=== PATIENT | male | born 1945 | race Caucasian/White ===

== ENCOUNTER 2017-11-18 13:19 | Inpatient (IN) ==
[2017-11-18] MEDS ORDERED: Ondansetron 4 MG/2 ML VIAL IVP PRN (17:22)
[2017-11-18] MEDS ORDERED: Acetaminophen 325 MG TABLET PO PRN (17:22)
[2017-11-18] MEDS ORDERED: Naloxone 0.4 MG/ML INJ IVP PRN (17:22)
--- NOTE | 2017-11-18 17:27 | Internal Med History&Physical ---
Date of Encounter: 11/19/17 Time of Encounter: 17:30 Assessment and Plan (1) Pneumonia Status: Inactive He has already received a dose of IV Rocephin and Zithromax. I will put him on Levaquin starting tomorrow. This will need to be dosed per kidney function. I have ordered strep and Legionella from urine. I have ordered blood cultures though he had received antibiotics. His lactic acid is within normal range. We will continue with nebulizers. Wean off oxygen as tolerated. Check sputum culture if he is able to give a sample. Qualifiers: Pneumonia type: due to unspecified organism Laterality: unspecified laterality Lung location: unspecified part of lung Qualified Code(s): J18.9 - Pneumonia, unspecified organism (2) Encephalopathy acute Status: Acute This is likely secondary to infectious etiology. For now we will treat his pneumonia and monitor mental status. He had a CT head done at [place] which was unremarkable. We will continue to follow. (3) Peripheral neuropathy Status: Acute Continue home meds. Qualifiers: Peripheral neuropathy type: mononeuropathy, unspecified Qualified Code(s): G58.9 - Mononeuropathy, unspecified (4) Chronic kidney disease, stage III (moderate) Status: Chronic Stable will check a BMP in the morning. 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 He will follow up as an outpatient. (6) DVT prophylaxis Status: Acute Heparin subcutaneous Internal Medicine - H&P: HPI Chief complaint: Shortness of breath Admitted From: Direct Admit Plans for Post Hospital Care: Home History of present illness: Mr. Zaman is a 72 year old male history of small cell lung cancer status post chemoradiation, hypertension, peripheral neuropathy, GERD, hyperlipidemia who presents to us as a transfer from [facility] after he had presented there with shortness of breath. Apparently the patient was doing well up until about yesterday when he started having issues with breathing per his . He has had a cough that is mostly dry. His measured a temperature that was up to about 101. He was feeling weak. Because at that they took him to [place] where he had a workup that showed that he has findings of pneumonia. He had a temperature 100.3 at that facility. He had laboratory workup that showed that he had a white count at around 10k. Normal lactic acid. Hemoglobin 13.9 and platelets 180. I do not see a CMP that was ordered there. He had an ABG which came back with a normal pH with a PCO2 44 PO2 was low at 54 with bicarbonate at 28. The patient was further most part hemodynamically stable other than a little bit of tachycardia with a heart rate of 103. He was given a dose of Zithromax and Rocephin. He was transferred to our facility then. The patient denies any headache blurry vision nausea vomiting chest pain abdominal pain near his symptoms or neurological symptoms other than the confusion that was this morning. Zachary of this patient is confusion was completely resolved. Past Med Surg Social Fam HX - Past Medical History Medical history: arthritis, cancer, coronary artery disease, GERD, hyperlipidemia, hypertension, malignancy, peripheral artery disease, renal disease, other Psychiatric history: depression - Past Surgical History Surgical History: angioplasty/stent, cataract, orthopedic, other, vascular surgery, other - Social History Smoking Status: Former smoker Smokeless Tobacco Status: No Alcohol use: none Drug use: none - Family History Paternal Grandfather Hx Family Neurologic Disorders: Yes (cva) Paternal Grandmother Hx Family Endocrine Disorder: Yes (dibetic) Father Adopted: No Family Member Ethnicity: Non- Living Status: Hx Family Cardiac Disorders: Yes Hx Family Respiratory Disorders: No Hx Family Cancer: Yes (penile) Hx Family GI Disorders: No Hx Family Endocrine Disorder: No Hx Family Neuromuscular Disorders: No Hx Family Neurologic Disorders: Yes (cva) Hx Family HEENT Disorders: No Hx Family Autoimmune Disorders: No Mother Living Status: Hx Family Cancer: Yes Sister Hx Family Cancer: Yes Hx Family Endocrine Disorder: Yes (Diabetes) Internal Medicine - H&P: Meds Allopurinol [Zyloprim 100 MG] 100 mg PO DAILY 02/15/16 [History] Atorvastatin Calcium [Lipitor] 80 mg PO HS 02/15/16 [History] Metoprolol XL (24 HR) Succ [Toprol Xl] 25 mg PO DAILY 02/15/16 [History] Omeprazole [PriLOSEC] 20 mg PO DAILY 02/15/16 [History] Pregabalin [Lyrica] 150 mg PO DAILY 02/15/16 [History] Aspirin [Lo-Dose Aspirin EC] 81 mg PO DAILY 08/12/16 [History] Albuterol Sulfate [Albuterol Inhaler] 1 puff IH Q4HR PRN 03/23/17 [History] Niacin [Niaspan] 500 mg PO DAILY 06/30/17 [History] Cyanocobalamin (Vitamin B-12) [Vitamin B12] 500 mcg PO DAILY 10/14/17 [History] Pyridoxine HCl [Vitamin B-6] 100 mg PO DAILY 10/14/17 [History] Cholecalciferol (Vitamin D3) [Vitamin D3] 2,000 unit PO DAILY 11/18/17 [History] Multivit-Min/Iron Fum/Folic AC [Zppcf-Mxwfqrh-Emsdftrp Tablet] 1 each PO DAILY 11/18/17 [History] hydrALAZINE [HydrALAZINE] 25 mg PO BID 11/18/17 [History] levoFLOXacin [Levaquin] 500 mg PO DAILY #5 tablet 11/19/17 [Rx] 3 Allergy/AdvReac Type Severity Reaction Status Date / Time codeine Allergy Vomiting Verified 10/14/17 10:40 Oxycodone [From Percocet] AdvReac Intermediate Vomiting Verified 10/14/17 10:40 All Systems PM: A 10-system review of systems was performed and is negative for pertinent findings except as documented above in the HPI. Review of systems: All systems reviewed are negative except for what is mentioned above - Constitutional Vitals: Temp Pulse Resp BP Pulse Ox 98.7 F 71 16 121/68 97 11/18/17 15:02 11/18/17 15:02 11/18/17 15:02 11/18/17 15:02 11/18/17 15:02 Exam: GEN: NAD HEENT: AT, NC, No cyanosis, oral mucosa is moist, No JVD Lymphatics: No lymphadenoapthy Eyes: Extrocular muscles intact, anicteric CVS:RRR. S1, S2, No m/r/g RESP: CTAB ABD: Soft, NT, ND, +BS EXT: No edema, No rashes, 2+ DP NEURO: Nonfocal, CN II-XII intact, No focal motor or sensory deficits Psych: Cooperative, Not anxious or depressed Internal Med - H&P Results - Labs CBC & Chem 7: 11/19/17 02:46 11/19/17 02:46
[2017-11-18] MEDS ORDERED: Ipratropium/Albuterol Neb 3 ML IH PRN (17:42)
[2017-11-18] MEDS: 0.9 % Sodium Chloride 1,000 ML IVC SCH (19:05)
[2017-11-18 20:07] LABS: Alanine Aminotransferase 11 Units/L (7-52); Albumin 3.4 g/dL (3.5-5.7); Albumin/Globulin Ratio 1.5 (1.1-2.2); Alkaline Phosphatase 97 Units/L (34-104); Aspartate Amino Transferase 21 Units/L (13-39); BUN/Creatinine Ratio 9 (6-26); Bilirubin,Total 0.6 mg/dL (0.3-1.0); Blood Urea Nitrogen 13 mg/dL (8-23); Calcium 8.7 mg/dL (8.6-10.3); Carbon Dioxide 31 mEq/L (23-29); Chloride 102 mEq/L (98-107); Globulin 2.2 g/dL (2.4-3.5); Glucose 113 mg/dL (70-105); Osmolality,Calculated 285 (280-300); Potassium 4.1 mEq/L (3.5-5.1); Sodium 137 mEq/L (136-145); Total Protein 5.6 g/dL (6.4-8.9); eGFR For African Americans > 60 (> 60); eGFR For Non-African Americans 50 (> 60)
[2017-11-19] MEDS: *HR* Heparin 5,000 UNIT/ML VIAL SQ SCH ×2 (00:26→10:14)
[2017-11-19 03:08] LABS: Basophils % 0.4 %; Eosinophils # 0.2 K/mcL (0.0-0.6); Eosinophils % 2.1 %; Hematocrit 36.1 % (37.5-50.1); Hemoglobin 11.6 g/dL (12.9-16.9); Immature Granulocytes % 0.5 % (0-4); Lymphocytes # 1.4 K/mcL (0.6-4.6); Lymphocytes % 17.6 %; Mean Corpuscular HGB Conc 32.1 g/dL (31.6-35.5); Mean Corpuscular Hemoglobin 29.3 pg (28.0-33.3); Mean Corpuscular Volume 91.2 fL (83.0-100.0); Monocytes % 12.4 %; Neutrophils # 5.4 K/mcL (1.6-8.9); Platelet Count 147 K/mcL (140-400); Red Blood Count 3.96 M/mcL (4.19-5.50); Red Cell Distribution Width 14.2 % (11.5-14.5)
[2017-11-19 03:29] LABS: BUN/Creatinine Ratio 10 (6-26); Blood Urea Nitrogen 13 mg/dL (8-23); Calcium 8.8 mg/dL (8.6-10.3); Carbon Dioxide 29 mEq/L (23-29); Chloride 105 mEq/L (98-107); Glucose 92 mg/dL (70-105); Magnesium 1.8 mg/dL (1.6-2.6); Osmolality,Calculated 294 (280-300); Potassium 3.8 mEq/L (3.5-5.1); Sodium 142 mEq/L (136-145); eGFR For African Americans > 60 (> 60); eGFR For Non-African Americans 57 (> 60)
[2017-11-19] MEDS: 0.9 % Sodium Chloride 1,000 ML IVC SCH (04:26)
--- NOTE | 2017-11-19 08:25 | Discharge Summary ---
Date of Encounter: 11/19/17 Time of Encounter: 08:20 - Discharge Diagnosis (1) Pneumonia Priority: Primary Status: Inactive Qualifiers: Pneumonia type: due to unspecified organism Laterality: unspecified laterality Lung location: unspecified part of lung Qualified Code(s): J18.9 - Pneumonia, unspecified organism (2) Encephalopathy acute Priority: Primary Status: Acute (3) Peripheral neuropathy Priority: Secondary Status: Acute Qualifiers: Peripheral neuropathy type: mononeuropathy, unspecified Qualified Code(s): G58.9 - Mononeuropathy, unspecified (4) Chronic kidney disease, stage III (moderate) Priority: Secondary Status: Chronic (5) Small cell carcinoma of right lung Priority: Secondary Status: Chronic - Discharge Medications Prescriptions: levoFLOXacin [Levaquin] 500 mg PO DAILY #5 tablet Home Medications: Allopurinol [Zyloprim 100 MG] 100 mg PO DAILY 02/15/16 [History] Atorvastatin Calcium [Lipitor] 80 mg PO HS 02/15/16 [History] Metoprolol XL (24 HR) Succ [Toprol Xl] 25 mg PO DAILY 02/15/16 [History] Omeprazole [PriLOSEC] 20 mg PO DAILY 02/15/16 [History] Pregabalin [Lyrica] 150 mg PO DAILY 02/15/16 [History] Aspirin [Lo-Dose Aspirin EC] 81 mg PO DAILY 08/12/16 [History] Albuterol Sulfate [Albuterol Inhaler] 1 puff IH Q4HR PRN 03/23/17 [History] Niacin [Niaspan] 500 mg PO DAILY 06/30/17 [History] Cyanocobalamin (Vitamin B-12) [Vitamin B12] 500 mcg PO DAILY 10/14/17 [History] Pyridoxine HCl [Vitamin B-6] 100 mg PO DAILY 10/14/17 [History] Cholecalciferol (Vitamin D3) [Vitamin D3] 2,000 unit PO DAILY 11/18/17 [History] Multivit-Min/Iron Fum/Folic AC [Ruuxs-Nzqthjw-Qfbnflcz Tablet] 1 each PO DAILY 11/18/17 [History] hydrALAZINE [HydrALAZINE] 25 mg PO BID 11/18/17 [History] levoFLOXacin [Levaquin] 500 mg PO DAILY #5 tablet 11/19/17 [Rx] Allergies/Adverse Reactions: 3 Allergy/AdvReac Type Severity Reaction Status Date / Time codeine Allergy Vomiting Verified 10/14/17 10:40 Oxycodone [From Percocet] AdvReac Intermediate Vomiting Verified 10/14/17 10:40 Date of admission: 11/18/17 17:22 Primary care physician: Gordo Khanna MD Consults: 11/18/17 16:12 Consult to Plant Culture Manager [CONS] Routine Reason for SW Consult: family stated they want home health on discharge 11/18/17 17:44 Consult to Physical Therapy [CONS] Routine Comment: Evaluate, develop and implement POC Reason for Consult: PT eval - Patient Status Disposition: Home, Self-Care Condition: Fair Overall status at discharge: patient is progressing back to baseline - Discharge Instructions Follow Up With: Gordo Khanna MD [Primary Care Provider] - 11/27/17 9:30 am - Diet and Activity Activity: resume usual activities as tolerated Diet: regular diet Hospital course: Mr. Zaman is a 72 year old male with history of small cell lung cancer status post chemoradiation, hypertension, peripheral neuropathy, GERD, hyperlipidemia who presented to us as a transfer from [facility] after he had presented there with shortness of breath. The patient had been complaining also of a cough that was dry. He had a temperature of about 101. He went to [place] [facility] where he had a workup was found to have community- acquired pneumonia with infiltrates seen on chest x-ray. He was tachycardic there. His white count was normal. His lactic acid was normal. He transferred to our facility where he was admitted to the hospitalist service. Apparently the patient was showing signs of confusion at home and at [place] [facility]. By the time he was in our facility he had showed no signs of confusion whatsoever. He was put on IV Levaquin. He did well and was not requiring oxygen the following day and was discharged to finish a course of treatment with oral Levaquin. We did set him up with home health. - Time Spent with Patient Total time spent providing and/or coordinating discharge services: Greater than 30 minutes - Constitutional Vitals: Temp Pulse Resp BP Pulse Ox 98.7 F 66 18 152/72 90 11/19/17 06:56 11/19/17 06:56 11/19/17 06:56 11/19/17 06:56 11/19/17 06:56 Exam: GEN: NAD CVS: RRR. S1, S2, No m/r/g RESP: Diminished and coarse at the bases. ABD: Soft, NT, ND, +BS EXT: No edema. 2+ DP, No rashes NEURO: Nonfocal
[2017-11-19] MEDS ORDERED: Metoprolol XL (24 HR) Succ 25 MG TAB.ER.24H PO SCH (09:00)
[2017-11-19] MEDS ORDERED: Pyridoxine (B-6) 50 MG TABLET PO SCH (09:00)
[2017-11-19] MEDS ORDERED: Levofloxacin 500 MG/100 ML 500 MG/100 ML BAG IVPB SCH (09:00)
[2017-11-19] MEDS ORDERED: Pregabalin 75 MG CAPSULE PO SCH (09:00)
[2017-11-19 11:08] VITALS: BP 138/74
--- NOTE | 2017-11-19 14:36 | Physician Discharge Referral ---
Home Health/Hosp Referral Info Transfer to: Home Health - Diagnosis (1) Pneumonia Priority: Primary Status: Inactive (2) Encephalopathy acute Priority: Primary Status: Acute (3) Peripheral neuropathy Priority: Secondary Status: Acute (4) Chronic kidney disease, stage III (moderate) Priority: Secondary Status: Chronic (5) Small cell carcinoma of right lung Priority: Secondary Status: Chronic - Respiratory Orders Smoking Cessation: Smoking cessation has been advised. For more information, call the [place] Tobacco Quit Line at 1-017-WYGK-NOW. - Diet/Nutrition Diet/Nutrition Orders: Regular - Services Needed Following services are medically necessary services: Home Health Aide - Transfer Medications Prescriptions: levoFLOXacin [Levaquin] 500 mg PO DAILY #5 tablet Home Medications: Allopurinol [Zyloprim 100 MG] 100 mg PO DAILY 02/15/16 [History] Atorvastatin Calcium [Lipitor] 80 mg PO HS 02/15/16 [History] Metoprolol XL (24 HR) Succ [Toprol Xl] 25 mg PO DAILY 02/15/16 [History] Omeprazole [PriLOSEC] 20 mg PO DAILY 02/15/16 [History] Pregabalin [Lyrica] 150 mg PO DAILY 02/15/16 [History] Aspirin [Lo-Dose Aspirin EC] 81 mg PO DAILY 08/12/16 [History] Albuterol Sulfate [Albuterol Inhaler] 1 puff IH Q4HR PRN 03/23/17 [History] Niacin [Niaspan] 500 mg PO DAILY 06/30/17 [History] Cyanocobalamin (Vitamin B-12) [Vitamin B12] 500 mcg PO DAILY 10/14/17 [History] Pyridoxine HCl [Vitamin B-6] 100 mg PO DAILY 10/14/17 [History] Cholecalciferol (Vitamin D3) [Vitamin D3] 2,000 unit PO DAILY 11/18/17 [History] Multivit-Min/Iron Fum/Folic AC [Mjqgy-Oacqrnv-Wkkvnqep Tablet] 1 each PO DAILY 11/18/17 [History] hydrALAZINE [HydrALAZINE] 25 mg PO BID 11/18/17 [History] levoFLOXacin [Levaquin] 500 mg PO DAILY #5 tablet 11/19/17 [Rx] Allergies/Adverse Reactions: 3 Allergy/AdvReac Type Severity Reaction Status Date / Time codeine Allergy Vomiting Verified 10/14/17 10:40 Oxycodone [From Percocet] AdvReac Intermediate Vomiting Verified 10/14/17 10:40 Certification: Further, I certify that my clinical findings support that this patient is homebound (i.e. absences from home require considerable and taxing effort and are for medical reasons or yarsanism services or infrequently or short duration when for other reasons) because: Homebound Reason: Patient requires assistance of a person or device to safely leave home Attestation: My signature below is to certify that this patient is under my care and that I, or nurse practitioner, or a physician's assistant terminal manager working with me, has a face-to -face encounter with this patient.
== END 2017-11-19 15:50 | disposition home or self-care (01) | DRG 193 ==
LOC: 3BNU
PROVIDERS: ADMIT Internal Medicine; ATTEND Registered Nurse

== ENCOUNTER 2017-12-11 16:55 | Inpatient (IN) ==
[2017-12-11] MEDS ORDERED: Ipratropium/Albuterol Neb 3 ML IH PRN (22:47)
[2017-12-11] MEDS ORDERED: Naloxone 0.4 MG/ML INJ IVP PRN (22:50)
--- NOTE | 2017-12-11 22:56 | Internal Med History&Physical ---
Date of Encounter: 12/11/17 Time of Encounter: 22:53 Assessment and Plan (1) Pleural effusion Current visit: Yes Status: Acute now on 2 LC. Hypoxia likely 2/2 plueral effusion. Consult pulm for diagnostic and therapeutic tap given hx of SCLC, and some pleuritic component, will check CTA to r/o PE (lower clinical suspicion given vital stable) and disease relapse onc follow up (2) Weakness Current visit: Yes Status: Acute uncertain etiology, could be related to abdo discomfort, diarrhea ? watch closely for now pt/ot trend lactate, check CPK from fall and found down (3) Small cell carcinoma of right lung Current visit: No Status: Chronic restaging CT imaging with hydration for contrast ppx in setting of CKD (4) HTN (hypertension) Current visit: Yes Status: Acute continue med Qualifiers: Hypertension type: essential hypertension Qualified Code(s): I10 - Essential (primary) hypertension Internal Medicine - H&P: HPI Chief complaint: fall, weakness History of present illness: Mr. Zaman is a 72 year old male with hx of HTN, SCLC s/p chemo-RT and PCI approx 1 year prior who presents with a fall 2/2 extreme weakness. He was found on the floor by a family friend but does not remember the circumstance leading to that. He reports abdo discomfort and diarrhea last evening. On review he noted 5-6 lb weight loss and chest discomfort on deep inspiration. He does not use oxygen at baseline EKG reviewed personally with rate 68, nsr CT/CT head/brain wo con IMPRESSION: No acute intracranial abnormality. Stable pattern of atrophy and small vessel disease in the periventricular white matter. XR/XR chest 1V portable IMPRESSION: Increased volume of a moderately sized right pleural effusion with associated atelectasis or consolidation. Past Med Surg Social Fam HX - Past Medical History Medical history: arthritis, cancer, coronary artery disease, GERD, hyperlipidemia, hypertension, malignancy, peripheral artery disease, renal disease, other Psychiatric history: depression - Past Surgical History Surgical History: angioplasty/stent, cataract, orthopedic, other, vascular surgery, other - Social History Smoking Status: Former smoker Smokeless Tobacco Status: No Alcohol use: none Drug use: none - Family History Paternal Grandfather Hx Family Neurologic Disorders: Yes (cva) Paternal Grandmother Hx Family Endocrine Disorder: Yes (dibetic) Father Adopted: No Family Member Ethnicity: Non- Living Status: Hx Family Cardiac Disorders: Yes Hx Family Respiratory Disorders: No Hx Family Cancer: Yes (penile) Hx Family GI Disorders: No Hx Family Endocrine Disorder: No Hx Family Neuromuscular Disorders: No Hx Family Neurologic Disorders: Yes (cva) Hx Family HEENT Disorders: No Hx Family Autoimmune Disorders: No Mother Living Status: Hx Family Cancer: Yes Sister Hx Family Cancer: Yes Hx Family Endocrine Disorder: Yes (Diabetes) Internal Medicine - H&P: Meds Allopurinol [Zyloprim 100 MG] 100 mg PO DAILY 02/15/16 [History] Atorvastatin Calcium [Lipitor] 80 mg PO HS 02/15/16 [History] Metoprolol XL (24 HR) Succ [Toprol Xl] 25 mg PO DAILY 02/15/16 [History] Omeprazole [PriLOSEC] 20 mg PO DAILY 02/15/16 [History] Pregabalin [Lyrica] 150 mg PO DAILY 02/15/16 [History] Aspirin [Lo-Dose Aspirin EC] 81 mg PO DAILY 08/12/16 [History] Albuterol Sulfate [Albuterol Inhaler] 1 puff IH Q4HR PRN 03/23/17 [History] Niacin [Niaspan] 500 mg PO DAILY 06/30/17 [History] Cyanocobalamin (Vitamin B-12) [Vitamin B12] 500 mcg PO DAILY 10/14/17 [History] Pyridoxine HCl [Vitamin B-6] 100 mg PO DAILY 10/14/17 [History] Cholecalciferol (Vitamin D3) [Vitamin D3] 2,000 unit PO DAILY 11/18/17 [History] Multivit-Min/Iron Fum/Folic AC [Vegae-Duoqmmn-Xvryvnbc Tablet] 1 each PO DAILY 11/18/17 [History] hydrALAZINE [HydrALAZINE] 25 mg PO BID 11/18/17 [History] 3 Allergy/AdvReac Type Severity Reaction Status Date / Time codeine Allergy Vomiting Verified 12/11/17 14:31 Oxycodone [From Percocet] AdvReac Intermediate Vomiting Verified 12/11/17 14:31 All Systems PM: A 10-system review of systems was performed and is negative for pertinent findings except as documented above in the HPI. - Constitutional Vitals: Temp Pulse Resp BP Pulse Ox 98.6 F 62 18 157/72 95 12/11/17 18:54 12/11/17 18:54 12/11/17 18:54 12/11/17 18:54 12/11/17 20:31
[2017-12-12] MEDS: 0.9 % Sodium Chloride 1,000 ML IVC SCH ×2 (00:04→17:33)
[2017-12-12] MEDS: Ipratropium/Albuterol Neb 3 ML IH SCH ×4 (04:50→23:31)
[2017-12-12] MEDS: *HR* Heparin 5,000 UNIT/ML VIAL SQ SCH ×2 (05:51→17:31)
[2017-12-12] MEDS: Pyridoxine (B-6) 50 MG TABLET PO SCH (08:29)
[2017-12-12] MEDS: Pregabalin 75 MG CAPSULE PO SCH (08:30)
[2017-12-12] MEDS: hydrALAZINE 25 MG TABLET PO SCH ×2 (08:30→20:00)
[2017-12-12] MEDS: Aspirin Enteric Coated 81 MG Tablet PO SCH (08:30)
[2017-12-12] MEDS: Metoprolol XL (24 HR) Succ 25 MG TAB.ER.24H PO SCH (08:30)
[2017-12-12 08:36] LABS: Basophils # 0.1 K/mcL (0.0-0.2); Basophils % 0.6 %; Eosinophils # 0.2 K/mcL (0.0-0.6); Eosinophils % 2.6 %; Hematocrit 37.9 % (37.5-50.1); Hemoglobin 12.2 g/dL (12.9-16.9); Immature Granulocytes % 0.4 % (0-4); Lymphocytes # 1.7 K/mcL (0.6-4.6); Lymphocytes % 20.4 %; Mean Corpuscular HGB Conc 32.2 g/dL (31.6-35.5); Mean Corpuscular Hemoglobin 29.1 pg (28.0-33.3); Mean Corpuscular Volume 90.5 fL (83.0-100.0); Mean Platelet Volume 11.1 fL (9.4-12.4); Monocytes # 1.2 K/mcL (0.0-1.3); Monocytes % 14.4 %; Platelet Count 161 K/mcL (140-400); Red Blood Count 4.19 M/mcL (4.19-5.50); Red Cell Distribution Width 14.5 % (11.5-14.5); Segmented Neutrophils % 61.6 %
[2017-12-12 08:44] LABS: INR 1.3; Prothrombin Time 13.9 Seconds (9.4-12.1)
[2017-12-12 08:56] LABS: Alanine Aminotransferase 9 Units/L (7-52); Albumin 3.3 g/dL (3.5-5.7); Albumin/Globulin Ratio 1.2 (1.1-2.2); Alkaline Phosphatase 93 Units/L (34-104); Aspartate Amino Transferase 19 Units/L (13-39); BUN/Creatinine Ratio 11 (6-26); Blood Urea Nitrogen 12 mg/dL (8-23); Calcium 9.2 mg/dL (8.6-10.3); Carbon Dioxide 25 mEq/L (23-29); Chloride 105 mEq/L (98-107); Creatine Kinase 154 Units/L (30-223); Globulin 2.8 g/dL (2.4-3.5); Glucose 88 mg/dL (70-105); Osmolality,Calculated 285 (280-300); Potassium 3.8 mEq/L (3.5-5.1); Sodium 138 mEq/L (136-145); Total Protein 6.1 g/dL (6.4-8.9); eGFR For African Americans > 60 (> 60); eGFR For Non-African Americans > 60 (> 60)
--- NOTE | 2017-12-12 09:21 | Pulmonology Consult Note ---
Date of Encounter: 12/12/17 Time of Encounter: 09:30 Assessment and Plan (1) Small cell carcinoma of right lung Current Visit: Yes Status: Acute Patient has prior history limited stage small cell ca s/p chemo and radiotherapy now coming with increased weakness , loss of weight and appetite , the imaging didnt show any obvious recurrence will have to revaluate after thoracentesis as the Right middle and lower lobe has atelectasis any endobronchial lesion cannot be ruled out. (2) Pleural effusion Current Visit: Yes Status: Acute Patient underwent ultrasound guided thoracentesis 1.2 litres of straw colored fluid was removed send for chemistry , culture and cytology . wait for cytology , patient might need thoracentesis if cytology is negative , malignancy yield from pleural fluid is low . POST CXR decrease in the size of pleural effusion no evidence of pneumothorax patient tolerated the procedure well. (3) Pneumonia Current Visit: Yes Status: Acute Will cover for CAP with ceftriaxone and azithromycin . Qualifiers: Pneumonia type: due to unspecified organism Laterality: right Qualified Code(s): J18.9 - Pneumonia, unspecified organism History of Present Illness Consult date: 12/12/17 Requesting physician: Robert Mcmahon Reason for consult: dyspnea, pleural effusion Chief complaint: weakeness and shortness of breadth History of present illness: 72 year old male with past medical history significant for Limited stage small cell lung carcinoma under chemo and radiotherapy comes with slowly developing body weakness found on the floor found by the family , Initial work up and imaging no evidence of recurrent tumour no evidence of metastasis but the CT chest showed large pleural effusion pulmonary was consulted for diagnostic and therapeutic thoracentesis . Patient had some cough and sputum production denies any flu like symptoms , denies any shortness of breadth , had some pain on deep inspiration , looks like fall is mechanical , denies any syncope, denies any chest pain or palpitations , denies any fever or chills , pulmonary was consulted for evaluation of Right sided pleural effusion. Previous Treatment: 02/12/2016: Bronchoscopy with endobronchial ultrasound and biopsy 02/25/2016 - 03/18/2016: Cisplatin/etoposide x2 cycles 04/07/2016 - 05/20/2016: Thoracic radiotherapy with concurrent cisplatin/etoposide x2 cycles, 6000 cGy in 30 fractions 06/16/2016 - 06/27/2016: Prophylactic cranial irradiation, 2500 cGy in 10 fractions 01/20/2017: Bronchoscopy with biopsy Past Med Surg Social Fam HX - Past Medical History Medical history: arthritis, cancer, coronary artery disease, GERD, hyperlipidemia, hypertension, malignancy, peripheral artery disease, renal disease, other Psychiatric history: depression - Past Surgical History Surgical History: angioplasty/stent, cataract, orthopedic, other, vascular surgery, other - Social History Smoking Status: Former smoker Smokeless Tobacco Status: No Alcohol use: none Drug use: none - Family History Paternal Grandfather Hx Family Neurologic Disorders: Yes (cva) Paternal Grandmother Hx Family Endocrine Disorder: Yes (dibetic) Father Adopted: No Family Member Ethnicity: Non- Living Status: Hx Family Cardiac Disorders: Yes Hx Family Respiratory Disorders: No Hx Family Cancer: Yes (penile) Hx Family GI Disorders: No Hx Family Endocrine Disorder: No Hx Family Neuromuscular Disorders: No Hx Family Neurologic Disorders: Yes (cva) Hx Family HEENT Disorders: No Hx Family Autoimmune Disorders: No Mother Living Status: Hx Family Cancer: Yes Sister Hx Family Cancer: Yes Hx Family Endocrine Disorder: Yes (Diabetes) Medications and Allergies Allopurinol [Zyloprim 100 MG] 100 mg PO DAILY 02/15/16 [History] Atorvastatin Calcium [Lipitor] 80 mg PO HS 02/15/16 [History] Metoprolol XL (24 HR) Succ [Toprol Xl] 25 mg PO DAILY 02/15/16 [History] Omeprazole [PriLOSEC] 20 mg PO DAILY 02/15/16 [History] Pregabalin [Lyrica] 150 mg PO DAILY 02/15/16 [History] Aspirin [Lo-Dose Aspirin EC] 81 mg PO DAILY 08/12/16 [History] Albuterol Sulfate [Albuterol Inhaler] 1 puff IH Q4HR PRN 03/23/17 [History] Niacin [Niaspan] 500 mg PO DAILY 06/30/17 [History] Cyanocobalamin (Vitamin B-12) [Vitamin B12] 500 mcg PO DAILY 10/14/17 [History] Pyridoxine HCl [Vitamin B-6] 100 mg PO DAILY 10/14/17 [History] Cholecalciferol (Vitamin D3) [Vitamin D3] 2,000 unit PO DAILY 11/18/17 [History] Multivit-Min/Iron Fum/Folic AC [Igatx-Zzxlayp-Eyfypwtz Tablet] 1 each PO DAILY 11/18/17 [History] hydrALAZINE [HydrALAZINE] 25 mg PO BID 11/18/17 [History] 3 Allergy/AdvReac Type Severity Reaction Status Date / Time codeine Allergy Vomiting Verified 12/11/17 14:31 Oxycodone [From Percocet] AdvReac Intermediate Vomiting Verified 12/11/17 14:31 All Systems: A 10-system review of systems was performed and is negative for pertinent findings except as documented above in the HPI. Physical Examination Vital Signs: Vital Signs, Last 4 Hours Temp Pulse Resp BP Pulse Ox 12/12/17 08:04 98.1 F 112 15 107/83 94 Auscultation: left: clear, right: diminished breath sounds Results - Laboratory Findings CBC and BMP: 12/12/17 08:09 12/12/17 08:09 PT/INR, D-dimer PT 13.9 Seconds (9.4-12.1) H 12/12/17 08:09 Abnormal lab findings: Abnormal lab results Hgb 12.2 g/dL (12.9-16.9) L D 12/12/17 08:09 PT 13.9 Seconds (9.4-12.1) H 12/12/17 08:09 Serum Total Protein 6.1 g/dL (6.4-8.9) L 12/12/17 08:09 Albumin 3.3 g/dL (3.5-5.7) L 12/12/17 08:09 - Clinical Findings Intake & Output: Intake & Output 12/11/17 12/12/17 12/12/17 23:59 07:59 15:59 Intake Total 1000 / 1000 Balance 1000 / 1000 Weight 84.459 kg Consult Discharge Plan - Plan Referrals: Gordo Khanna MD [Primary Care Provider] -
--- NOTE | 2017-12-12 11:17 | Procedure Note ---
Date of procedure: 12/12/17 Pre-op diagnosis: Pleural effusion Post-op diagnosis: same Procedure: Written Consent was obtained from the patient and time out was performed for a right sided thoracentesis . Ultrasound was used a safe pocket was marked on the right side , the area was sterilized and draped skin was infiltrated with 10 ml of 1% lidocaine , with help of the 8 georgian pleural drainage needle 1.2 litres clear yellow straw colored fluid was removed , the samples was sent for chemistry , gram stain , culture and cytology. Patient tolerated procedure well . CXR was ordered . Anesthesia: local Was there an certified ophthalmic surgical assistant present: No Estimated blood loss (cc): 0 Specimen: pleural fluid Pathology: other (cytology) Condition: stable Disposition: floor
[2017-12-12 11:24] LABS: Appearance of Pleural Fl Clear (Clear)
[2017-12-12] MEDS: Azithromycin 500 MG in D5% in Water 250 ML IVPB SCH (11:31)
[2017-12-12] MEDS: cefTRIAXone 1,000 MG in Water for inj. (sterile) 20 ML 10 ML IVP SCH (11:31)
[2017-12-12 11:32] LABS: RBC,Pleural Fluid < 0.002 M/mcL
[2017-12-12 11:39] LABS: Glucose,Pleural Fluid 95 mg/dL (No Ref Range); LDH,Pleural Fluid 68 Units/L (No Ref Range); Total Protein,Pleural Fluid 3.7 g/dL (No Ref Range)
[2017-12-12 11:51] LABS: Albumin 3.3 g/dL (3.5-5.7); Albumin/Globulin Ratio 1.2 (1.1-2.2); Bilirubin,Direct 0.2 mg/dL (0.0-0.2); Bilirubin,Indirect 0.8 mg/dL (0.0-1.2); Globulin 2.8 g/dL (2.4-3.5); Total Protein 6.1 g/dL (6.4-8.9)
[2017-12-12 12:27] LABS: Amylase,Pleural Fluid < 10 Units/L (No Ref Range)
--- NOTE | 2017-12-12 16:39 | Internal Med Progress Note ---
Date of Encounter: 12/12/17 Time of Encounter: 11:20 - Assessment and plan (1) Pleural effusion Current Visit: Yes Status: Acute Assessment and plan: Large right pleural effusion status post thoracentesis. Awaiting lab studies. Pulmonology consult appreciated. Will follow recommendations. Patient has been started on antibiotics for consolidation in the right lung. We will repeat chest x-ray tomorrow. Moderate risk for complications. (2) Hypertension Current Visit: Yes Status: Chronic Assessment and plan: Blood pressure is well controlled. 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 CT scan of the chest shows stable right parahilar space disease with 2 new 1 cm right paratracheal lymph nodes. Discussed with pulmonology. Recommend no urgent interventions. (4) Weakness Current Visit: Yes Status: Acute Assessment and plan: Will consult physical therapy for evaluation. Patient may need placement to skilled rehabilitation. - Subjective Interval history: Patient is lying in bed. Appears comfortable. Complains of fatigue and tiredness. No shortness of breath at this time. Continues to have cough. Underwent right-sided thoracentesis today. Doing well postprocedure. - Constitutional Vitals: Temp Pulse Resp BP Pulse Ox 97.9 F 68 16 110/72 97 12/12/17 15:21 12/12/17 15:21 12/12/17 16:12 12/12/17 15:21 12/12/17 16:12 General appearance: Present: cooperative, A&O X 3, answers questions appropriately - Cardiovascular Cardiovascular exam: Present: RRR, +S1, +S2. Absent: diastolic murmur, gallop, rubs, systolic murmur - GI/Abdominal GI/Abdominal exam: Present: normal bowel sounds, soft, no peritoneal signs. Absent: distended, tenderness - Extremities Exam Extremities exam: Present: warm, radial pulses palpable and symmetrical. Absent : calf tenderness, cyanotic, pedal edema - Neurological Exam Neurological exam: Present: alert, oriented X3, no focal deficits. Absent: facial droop, speech deficit Internal Medicine: Result - Labs CBC & Chem 7: 12/12/17 08:09 12/12/17 08:09 Labs: Short CBC 12/12/17 Range/Units 08:09 WBC 8.2 (4.3-11.1) K/mcL Hgb 12.2 L D (12.9-16.9) g/dL Hct 37.9 (37.5-50.1) % Plt Count 161 (140-400) K/mcL Neutrophils # 5.0 (1.6-8.9) K/mcL BMP 12/12/17 08:09 Sodium 138 Potassium 3.8 Chloride 105 Carbon Dioxide 25 BUN 12 Creatinine 1.14 Glucose 88 Calcium 9.2 Liver Function 12/12/17 12/12/17 Range/Units 08:09 08:26 Total Bilirubin 1.0 1.0 (0.3-1.0) mg/dL Direct Bilirubin 0.2 (0.0-0.2) mg/dL AST 19 23 (13-39) Units/L ALT 9 9 (7-52) Units/L Alkaline Phosphatase 93 93 (34-104) Units/L Albumin 3.3 L 3.3 L (3.5-5.7) g/dL - ABG Interpretation ABG results: PT/INR, D-dimer PT 13.9 Seconds (9.4-12.1) H 12/12/17 08:09 - Impressions Impressions Chest X-Ray 12/12/17 10:44 IMPRESSION: Decreasing right effusion following thoracentesis without pneumothorax. D/ / Juan Cain MD / Juan Cain MD Interpreting Provider: Juan Cain MD Abdomen/Pelvis CT 12/12/17 22:48 IMPRESSION: No evidence of metastatic disease in the abdomen or pelvis. Large right pleural effusion and small pericardial effusion. Please see same-day CT chest for additional findings. D/ / Reji Perez / Reji Perez Interpreting Provider: Reji Perez Chest CTA 12/12/17 23:32 IMPRESSION: No evidence of pulmonary embolism. Large right pleural effusion with associated severe right lung atelectasis. No significant change is evident. Stable focal right parahilar airspace disease which may represent malignancy versus chronic airspace disease. Two new 1 cm right paratracheal lymph nodes which are nonspecific. D/ : / 12/12/2017 06:30:56 Sher Garcia MD / [email or web address] Interpreting Provider: Sher Garcia MD Consult Discharge Plan - Plan Referrals: Gordo Khanna MD [Primary Care Provider] -
[2017-12-13] MEDS: Ipratropium/Albuterol Neb 3 ML IH SCH ×4 (04:37→22:41)
[2017-12-13] MEDS: *HR* Heparin 5,000 UNIT/ML VIAL SQ SCH ×2 (06:01→17:09)
[2017-12-13] MEDS: Pregabalin 75 MG CAPSULE PO SCH (08:17)
[2017-12-13] MEDS: hydrALAZINE 25 MG TABLET PO SCH ×2 (08:17→20:26)
[2017-12-13] MEDS: Metoprolol XL (24 HR) Succ 25 MG TAB.ER.24H PO SCH (08:17)
[2017-12-13] MEDS: cefTRIAXone 1,000 MG in Water for inj. (sterile) 20 ML 10 ML IVP SCH (08:18)
[2017-12-13] MEDS: Pyridoxine (B-6) 50 MG TABLET PO SCH (08:18)
[2017-12-13] MEDS: Aspirin Enteric Coated 81 MG Tablet PO SCH (08:18)
--- NOTE | 2017-12-13 09:23 | Pulmonology Progress Note ---
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 Waiting for pleural fluid cytology. If negative might need repeat thoracentesis . (2) Pleural effusion Current Visit: Yes Status: Acute 1.2 litres of straw colored fluid was removed , look exudative by serum albumin- pleural fluid albumin criteria , culture are negative so far waiting for pleural fluid cytology . (3) Pneumonia Current Visit: Yes Status: Acute To continue the current regimen of antibiotics . RLL lobe atelectasis / pneumonia Qualifiers: Pneumonia type: due to unspecified organism Laterality: right Lung location: lower lobe of lung Qualified Code(s): J18.1 - Lobar pneumonia, unspecified organism Subjective Principal diagnosis: Pneumonia with Pleural effusion Interval history: Patient is feeling lot better denies any cough or sputum production , denies any breathing difficulty . Denies any chest pain Objective PUL Vital signs: Last Vital Signs Temp 98.1 F 12/13/17 06:52 Pulse 69 12/13/17 06:52 Resp 18 12/13/17 06:52 BP 110/55 12/13/17 06:52 Pulse Ox 95 12/13/17 06:52 Auscultation: left: clear, right: diminished breath sounds Results - Laboratory Findings CBC and BMP: 12/12/17 08:09 12/12/17 08:09 PT/INR, D-dimer PT 13.9 Seconds (9.4-12.1) H 12/12/17 08:09 Abnormal lab findings: Abnormal lab results Hgb 12.2 g/dL (12.9-16.9) L D 12/12/17 08:09 PT 13.9 Seconds (9.4-12.1) H 12/12/17 08:09 Serum Total Protein 6.1 g/dL (6.4-8.9) L 12/12/17 08:26 Albumin 3.3 g/dL (3.5-5.7) L 12/12/17 08:26 - Microbiology Findings Microbiology Findings: Microbiology, Last 48 Hours 12/12/17 10:55 Acid Fast Stain - Final Pleural Fluid 12/12/17 10:55 Body Fluid Culture - Preliminary Pleural Fluid - Clinical Findings Intake & Output: Intake & Output 12/12/17 12/13/17 12/13/17 23:59 07:59 15:59 Intake Total 980 / 980 1000 / 1000 Output Total 0 / 0 320 / 320 Balance 980 / 980 680 / 680 Weight 85.003 kg Consult Discharge Plan - Plan Referrals: Gordo Khanna MD [Primary Care Provider] -
[2017-12-13] MEDS: Azithromycin 500 MG in D5% in Water 250 ML IVPB SCH (10:08)
--- NOTE | 2017-12-13 15:58 | Internal Med Progress Note ---
Date of Encounter: 12/13/17 Time of Encounter: 11:45 - Assessment and plan (1) Pneumonia Current Visit: Yes Status: Acute Assessment and plan: Continue current antibiotics. Chest x-ray done today shows right upper and lower lobe air space disease. Awaiting culture results. Will request for complications. Pulmonology following. Qualifiers: Pneumonia type: due to unspecified organism Laterality: right Lung location: lower lobe of lung Qualified Code(s): J18.1 - Lobar pneumonia, unspecified organism (2) Pleural effusion Current Visit: Yes Status: Acute Assessment and plan: Status post thoracentesis. Appears transudative. Awaiting culture results. (3) Hypertension Current Visit: Yes Status: Chronic Assessment and plan: Well-controlled. Qualifiers: Hypertension type: essential hypertension Qualified Code(s): I10 - Essential (primary) hypertension (4) Small cell carcinoma of right lung Current Visit: No Status: Chronic Assessment and plan: Follow-up outpatient with oncology. (5) Weakness Current Visit: Yes Status: Acute Assessment and plan: PTOT consulted. Awaiting evaluation. - Subjective Interval history: Patient is awake and alert. Sitting up in chair. Denies any new complaints at this time. Tolerating diet well. No shortness of breath. Reports some chest pain at site of thoracentesis. - Constitutional Vitals: Temp Pulse Resp BP Pulse Ox 97.6 F 64 17 143/76 100 12/13/17 10:53 12/13/17 10:53 12/13/17 10:53 12/13/17 10:53 12/13/17 10:53 General appearance: Present: cooperative, A&O X 3, answers questions appropriately - Respiratory Respiratory exam: Present: CTAB. Absent: accessory muscle use, rales, rhonchi, wheezes - Cardiovascular Cardiovascular exam: Present: RRR, +S1, +S2. Absent: diastolic murmur, gallop, rubs, systolic murmur - GI/Abdominal GI/Abdominal exam: Present: normal bowel sounds, soft, no peritoneal signs. Absent: distended, tenderness - Neurological Exam Neurological exam: Present: CN II-XII intact, oriented X3, no focal deficits. Absent: facial droop, speech deficit Internal Medicine: Result - Labs CBC & Chem 7: 12/12/17 08:09 12/12/17 08:09 - ABG Interpretation ABG results: PT/INR, D-dimer PT 13.9 Seconds (9.4-12.1) H 12/12/17 08:09 - Impressions Impressions Chest X-Ray 12/13/17 07:00 IMPRESSION: No change. D/ / 12/13/2017 07:10:33 Juan Cain MD / [email or web address] Interpreting Provider: Juan Cain MD Consult Discharge Plan - Plan Referrals: Gordo Khanna MD [Primary Care Provider] -
[2017-12-14] MEDS: Ipratropium/Albuterol Neb 3 ML IH SCH ×3 (04:20→15:53)
[2017-12-14] MEDS: *HR* Heparin 5,000 UNIT/ML VIAL SQ SCH (05:13)
[2017-12-14] MEDS: Aspirin Enteric Coated 81 MG Tablet PO SCH (08:12)
[2017-12-14] MEDS: Pyridoxine (B-6) 50 MG TABLET PO SCH (08:12)
[2017-12-14] MEDS: Pregabalin 75 MG CAPSULE PO SCH (08:13)
[2017-12-14] MEDS: hydrALAZINE 25 MG TABLET PO SCH (08:13)
[2017-12-14] MEDS: Metoprolol XL (24 HR) Succ 25 MG TAB.ER.24H PO SCH (08:13)
[2017-12-14] MEDS: cefTRIAXone 1,000 MG in Water for inj. (sterile) 20 ML 10 ML IVP SCH (08:13)
[2017-12-14] MEDS: Azithromycin 500 MG in D5% in Water 250 ML IVPB SCH (09:04)
--- NOTE | 2017-12-14 10:38 | Pulmonology Progress Note ---
Date of Encounter: 12/14/17 Time of Encounter: 09:00 Assessment and Plan (1) Mediastinal adenopathy Current Visit: Yes Status: Acute Reviewed CT chest results with the patient and explained to him about bronchoscopy and the fact that he has recurrent pneumonia and underlying history of lung cancer then bronchoscopy if not done now as outpatient is recommended. Patient does not want any procedure because he have too many things to do at this time. Call for any questions (2) Small cell carcinoma of right lung Current Visit: Yes Status: Chronic Patient following up with oncology (3) Pleural effusion Current Visit: Yes Status: Resolved Based on his fluid analysis at this time most likely is transudative. Cytology is pending. Subjective Principal diagnosis: Pneumonia with Pleural effusion Interval history: Patient is feeling much better and denies any major complaints Objective PUL Vital signs: Last Vital Signs Temp 98.0 F 12/14/17 06:55 Pulse 69 12/14/17 06:55 Resp 16 12/14/17 06:55 BP 152/60 12/14/17 06:55 Pulse Ox 96 12/14/17 06:55 General appearance: no acute distress Eyes: nonicteric Neck: supple Effort: normal Auscultation: left: clear, right: diminished breath sounds Percussion: left: not dull, right: dull Cardiovascular: regular rate and rhythm Gastrointestinal: normoactive bowel sounds, non-distended Extremities: no cyanosis normal mental status, non-focal exam mood appropriate Results - Laboratory Findings CBC and BMP: 12/12/17 08:09 12/12/17 08:09 PT/INR, D-dimer PT 13.9 Seconds (9.4-12.1) H 12/12/17 08:09 Abnormal lab findings: Abnormal lab results Hgb 12.2 g/dL (12.9-16.9) L D 12/12/17 08:09 PT 13.9 Seconds (9.4-12.1) H 12/12/17 08:09 Serum Total Protein 6.1 g/dL (6.4-8.9) L 12/12/17 08:26 Albumin 3.3 g/dL (3.5-5.7) L 12/12/17 08:26 - Microbiology Findings Microbiology Findings: Microbiology, Last 48 Hours 12/12/17 10:55 Body Fluid Culture - Preliminary Pleural Fluid 12/12/17 10:55 Acid Fast Stain - Final Pleural Fluid - Diagnostic Findings CT scan - chest: report reviewed, image reviewed - Clinical Findings Intake & Output: Intake & Output 12/13/17 12/14/17 12/14/17 23:59 07:59 15:59 Intake Total 710 / 710 240 / 240 Output Total 0 / 0 Balance 710 / 710 240 / 240 Weight 85.275 kg Consult Discharge Plan - Plan Referrals: Gordo Khanna MD [Primary Care Provider] -
[2017-12-14 10:48] VITALS: BP 129/70
--- NOTE | 2017-12-14 13:59 | Discharge Summary ---
Date of Encounter: 12/14/17 Time of Encounter: 13:57 - Discharge Diagnosis (1) Pneumonia Priority: Primary Status: Acute Qualifiers: Pneumonia type: due to unspecified organism Laterality: right Lung location: lower lobe of lung Qualified Code(s): J18.1 - Lobar pneumonia, unspecified organism (2) Pleural effusion Priority: Secondary Status: Acute (3) Hypertension Priority: Secondary Status: Chronic Qualifiers: Hypertension type: essential hypertension Qualified Code(s): I10 - Essential (primary) hypertension (4) Small cell carcinoma of right lung Priority: Secondary Status: Chronic (5) Weakness Priority: Secondary Status: Acute - Discharge Medications Prescriptions: Azithromycin [Zithromax] 500 mg PO Q24H #10 tablet Cefdinir [Omnicef] 300 mg PO BID #10 capsule Home Medications: Allopurinol [Zyloprim 100 MG] 100 mg PO DAILY 02/15/16 [History] Atorvastatin Calcium [Lipitor] 80 mg PO HS 02/15/16 [History] Metoprolol XL (24 HR) Succ [Toprol Xl] 25 mg PO DAILY 02/15/16 [History] Omeprazole [PriLOSEC] 20 mg PO DAILY 02/15/16 [History] Pregabalin [Lyrica] 150 mg PO DAILY 02/15/16 [History] Aspirin [Lo-Dose Aspirin EC] 81 mg PO DAILY 08/12/16 [History] Albuterol Sulfate [Albuterol Inhaler] 1 puff IH Q4HR PRN 03/23/17 [History] Niacin [Niaspan] 500 mg PO DAILY 06/30/17 [History] Cyanocobalamin (Vitamin B-12) [Vitamin B12] 500 mcg PO DAILY 10/14/17 [History] Pyridoxine HCl [Vitamin B-6] 100 mg PO DAILY 10/14/17 [History] Cholecalciferol (Vitamin D3) [Vitamin D3] 2,000 unit PO DAILY 11/18/17 [History] Multivit-Min/Iron Fum/Folic AC [Cilkp-Ypsydvk-Acovnejj Tablet] 1 each PO DAILY 11/18/17 [History] hydrALAZINE [HydrALAZINE] 25 mg PO BID 11/18/17 [History] Azithromycin [Zithromax] 500 mg PO Q24H #10 tablet 12/14/17 [Rx] Cefdinir [Omnicef] 300 mg PO BID #10 capsule 12/14/17 [Rx] Allergies/Adverse Reactions: 3 Allergy/AdvReac Type Severity Reaction Status Date / Time codeine Allergy Vomiting Verified 12/14/17 13:40 Oxycodone [From Percocet] AdvReac Intermediate Vomiting Verified 12/14/17 13:40 Procedures/tests Complete & Pending: Procedures Performed prior 72 hours Category Date Time Status CT abd pelvis w iv and oral [CT] Routine Cat Scan 12/12/17 22:[address] angio chest [CT] Routine Cat Scan 12/12/17 23:32 Completed EV echo guided thoracentesis Routine Y 12/12/17 09:38 Completed Date of admission: 12/11/17 22:51 Primary care physician: Gordo Khanna MD Consults: 12/11/17 22:49 Consult to Pulmonology [CONS] Routine Consulting Provider: [facility] [place] Reason for Consult: assist in pleural effusion management Call Completed: No 12/11/17 22:50 Consult to Oncology [CONS] Routine Consulting Provider: [facility] Reason for Consult: SCLC now with plerual effusion Call Completed: No 12/12/17 11:43 Consult to Physical Therapy [CONS] Routine Comment: Evaluate, develop and implement POC Reason for Consult: weakness 12/12/17 11:44 Consult to Occupational Therapy [CONS] Routine Comment: Evaluate, develop and implement POC Reason for Consult: weakness 12/14/17 13:19 Consult to Assistant Department Manager [CONS] Routine Reason for SW Consult: DC planning Discharging clinician: Robert Mcmahon Anticipated date of discharge: 12/14/17 - Patient Status Disposition: Home Health Service Condition: Good Functional capacity at discharge: uses cane/walker Overall status at discharge: patient is progressing back to baseline - Discharge Instructions Instructions: Pleural Effusion (GEN), Chronic Hypertension (DC), Pneumonia (DC) Follow Up With: Spenser English MD [Partnered Physician] - (1-2 weeks) Gordo Khanna MD [Primary Care Provider] - 12/21/17 10:30 am (in 1 -2 weeks) - Diet and Activity Activity: as per physical therapy Diet: low fat, low cholesterol, low salt diet Hospital course: Mr. Zaman is a 72 year old male patient with a history of small cell lung cancer who was hospitalized here after presenting with complaints of shortness of breath. Chest x-ray showed presence of large right-sided pleural effusion. Pulmonology was consulted and patient underwent thoracentesis. About 1.2 L of yellow straw colored fluid was removed. Patient did have consolidation underneath the fusion and pulmonology recommended placing the patient on antibiotics. His condition has progressively improved since then. Initial CT scan of the chest also showed presence of new paratracheal lymph nodes. Pulmonology has recommended bronchoscopy but this can be done as outpatient per patient wishes. He is clinically stable to be discharged home. He will complete antibiotic course for pneumonia as outpatient. He has home health which will be continued at discharge. - Time Spent with Patient Total time spent providing and/or coordinating discharge services: Greater than 30 minutes (32 min) - Constitutional Vitals: Temp Pulse Resp BP Pulse Ox 98.0 F 67 16 129/70 95 12/14/17 10:43 12/14/17 10:43 12/14/17 10:43 12/14/17 10:43 12/14/17 10:43 General appearance: Present: cooperative, A&O X 3, answers questions appropriately - Respiratory Respiratory exam: Present: decreased breath sounds (at both bases). Absent: accessory muscle use, rales, rhonchi, wheezes - Cardiovascular Cardiovascular exam: Present: RRR, +S1, +S2. Absent: diastolic murmur, gallop, rubs, systolic murmur - GI/Abdominal GI/Abdominal exam: Present: normal bowel sounds, soft, no peritoneal signs. Absent: distended, tenderness - Extremities Exam Extremities exam: Present: warm, radial pulses palpable and symmetrical. Absent : calf tenderness, cyanotic, pedal edema
--- NOTE | 2017-12-14 14:17 | Physician Discharge Referral ---
Home Health/Hosp Referral Info Transfer to: Home Health Provider in Charge Post Discharge: PCP - Diagnosis (1) Pneumonia Priority: Primary Status: Acute (2) Pleural effusion Priority: Secondary Status: Acute (3) Hypertension Priority: Secondary Status: Chronic (4) Small cell carcinoma of right lung Priority: Secondary Status: Chronic (5) Weakness Priority: Secondary Status: Acute - Respiratory Orders Smoking Cessation: Smoking cessation has been advised. For more information, call the [place] Tobacco Quit Line at 1-698-DIIH-NOW. - Diet/Nutrition Diet/Nutrition Orders: Cardiac - Activity Activity Orders: Walker - Services Needed Following services are medically necessary services: Nursing, Physical Therapy, Occupational Therapy - Transfer Medications Prescriptions: Azithromycin [Zithromax] 500 mg PO Q24H #10 tablet Cefdinir [Omnicef] 300 mg PO BID #10 capsule Home Medications: Allopurinol [Zyloprim 100 MG] 100 mg PO DAILY 02/15/16 [History] Atorvastatin Calcium [Lipitor] 80 mg PO HS 02/15/16 [History] Metoprolol XL (24 HR) Succ [Toprol Xl] 25 mg PO DAILY 02/15/16 [History] Omeprazole [PriLOSEC] 20 mg PO DAILY 02/15/16 [History] Pregabalin [Lyrica] 150 mg PO DAILY 02/15/16 [History] Aspirin [Lo-Dose Aspirin EC] 81 mg PO DAILY 08/12/16 [History] Albuterol Sulfate [Albuterol Inhaler] 1 puff IH Q4HR PRN 03/23/17 [History] Niacin [Niaspan] 500 mg PO DAILY 06/30/17 [History] Cyanocobalamin (Vitamin B-12) [Vitamin B12] 500 mcg PO DAILY 10/14/17 [History] Pyridoxine HCl [Vitamin B-6] 100 mg PO DAILY 10/14/17 [History] Cholecalciferol (Vitamin D3) [Vitamin D3] 2,000 unit PO DAILY 11/18/17 [History] Multivit-Min/Iron Fum/Folic AC [Lbmxr-Wmctraw-Lpddvrme Tablet] 1 each PO DAILY 11/18/17 [History] hydrALAZINE [HydrALAZINE] 25 mg PO BID 11/18/17 [History] Azithromycin [Zithromax] 500 mg PO Q24H #10 tablet 12/14/17 [Rx] Cefdinir [Omnicef] 300 mg PO BID #10 capsule 12/14/17 [Rx] Allergies/Adverse Reactions: 3 Allergy/AdvReac Type Severity Reaction Status Date / Time codeine Allergy Vomiting Verified 12/14/17 13:40 Oxycodone [From Percocet] AdvReac Intermediate Vomiting Verified 12/14/17 13:40 Certification: Further, I certify that my clinical findings support that this patient is homebound (i.e. absences from home require considerable and taxing effort and are for medical reasons or scientology services or infrequently or short duration when for other reasons) because: Homebound Reason: Patient requires assistance of a person or device to safely leave home Attestation: My signature below is to certify that this patient is under my care and that I, or nurse practitioner, or a physician's training assistant working with me, has a face-to -face encounter with this patient.
[2017-12-15] MEDS ORDERED: Azithromycin 250 MG TABLET PO SCH (10:00)
== END 2017-12-14 16:15 | disposition home health service (06) | DRG 194 ==
LOC: 2ANU → SUATTDRO 22:51
PROVIDERS: ADMIT Internal Medicine; ATTEND Internal Medicine